=== PATIENT | male | born 1950 | race Caucasian/White ===

== ENCOUNTER 2020-05-31 18:11 | Emergency (ER) | payer MEDICARE, MEDICAID ==
[~2020-05-31] VITALS: Ht 187 cm; Wt 90.9 kg
[~2020-05-31 18:11] MED LIST: TRM50T PO
[2020-05-31] MEDS ORDERED: TETANUS,DIPTH,PERTUSS P/F (BOOSTRIX) 0.5 ML VIAL IM ONE (18:30)
[2020-05-31 18:33] LABS: BASOPHILS % (AUTO) 0 % (0-10); EOSINOPHILS # (AUTO) 0.2 10^3/uL (0.0-0.3); EOSINOPHILS % (AUTO) 2 % (0-10); HEMATOCRIT 43 % (40-54); HEMOGLOBIN 13.8 g/dL (13.3-17.7); LYMPHOCYTES # (AUTO) 1.5 10^3/uL (1.0-4.0); LYMPHOCYTES % (AUTO) 15 % (12-44); MEAN CORPUSCULAR HEMOGLOBIN 31 pg (25-34); MEAN CORPUSCULAR HGB CONC 32 g/dL (32-36); MEAN CORPUSCULAR VOLUME 95 fL (80-99); MEAN PLATELET VOLUME 10.4 fL (9.0-12.2); MONOCYTES # (AUTO) 0.7 10^3/uL (0.0-1.0); MONOCYTES % (AUTO) 7 % (0-12); NEUTROPHILS # (AUTO) 7.7 10^3/uL (1.8-7.8); NEUTROPHILS % (AUTO) 75 % (42-75); PLATELET COUNT 252 10^3/uL (130-400); WHITE BLOOD COUNT 10.3 10^3/uL (4.3-11.0)
[2020-05-31 18:37] LABS: ALBUMIN 3.8 GM/DL (3.2-4.5); CHLORIDE 101 MMOL/L (98-107); SODIUM 137 MMOL/L (135-145)
[2020-05-31 18:38] LABS: CALCIUM 8.5 MG/DL (8.5-10.1)
[2020-05-31 18:40] LABS: GLUCOSE 98 MG/DL (70-105); TOTAL PROTEIN 6.6 GM/DL (6.4-8.2)
[2020-05-31 18:41] LABS: BILIRUBIN,TOTAL 0.7 MG/DL (0.1-1.0); CARBON DIOXIDE 27 MMOL/L (21-32)
[2020-05-31 18:43] LABS: ALKALINE PHOSPHATASE 59 U/L (40-136); CREATININE SERUM 1.03 MG/DL (0.60-1.30); GFR ESTIMATED > 60
[2020-05-31 18:44] LABS: BUN/CREATININE RATIO 18
[2020-05-31 18:46] LABS: ALANINE AMINOTRANSFERASE 18 U/L (0-55); MAGNESIUM 2.3 MG/DL (1.6-2.4)
--- NOTE | 2020-05-31 18:56 | NUR ---
REPORT TO JEANIE
[2020-05-31 19:00] LABS: BILIRUBIN,URINE NEGATIVE (NEGATIVE); CLARITY,URINE CLEAR; COLOR,URINE YELLOW; GLUCOSE, URINE (UA) NEGATIVE (NEGATIVE); KETONES,URINE NEGATIVE (NEGATIVE); LEUKOCYTE ESTERASE ,URINE NEGATIVE (NEGATIVE); NITRITE,URINE NEGATIVE (NEGATIVE); PROTEIN,URINE NEGATIVE (NEGATIVE)
--- NOTE | 2020-05-31 19:13 | Diagnostic Imaging Report ---
EXAMINATION: CT head and CT cervical spine without contrast. TECHNIQUE: Multiple contiguous axial images were obtained through the brain and cervical spine without the use of intravenous contrast. Sagittal and coronal reformations through the cervical spine were then performed. All CT scans use one or more of the following dose optimizing techniques: automated exposure control, MA and/or KvP adjustment based on patient size and exam type or iterative reconstruction. HISTORY: Trauma. COMPARISON: None available. FINDINGS: CT head: Mild diffuse cerebral volume loss with proportional enlargement of the ventricles and sulci. Mild hypodensities throughout the supratentorial white matter of both cerebral hemispheres. No acute intracranial hemorrhage or abnormal extra-axial fluid collections are present. Calcification of the intracranial ICAs. No hyperdense vessel. The calvarium is intact. The mastoid air cells are clear. The visualized paranasal sinuses are clear. Surgical changes from bilateral cataract repair. CT cervical spine: Vertebral body height and alignment are preserved. Multilevel cervical spondylosis. No acute fracture, dislocation or destructive osseous process. Multilevel facet hypertrophy. No greater than mild central canal or neuroforaminal stenosis at any level. The paraspinous soft tissues are normal. The visualized thyroid gland is normal. The visualized lung apices are normal. IMPRESSION: 1. No acute intracranial abnormality. 2. Degenerative changes of the cervical spine without acute osseous abnormality. 3. Mild chronic senescent changes. Dictated by: Dictated on workstation # [id number]
[2020-05-31 19:18] LABS: AMPHETAMINE SCREEN, URINE NEGATIVE (NEGATIVE); BARBITURATE SCREEN URINE NEGATIVE (NEGATIVE); BENZODIAZEPINES SCREEN URINE NEGATIVE (NEGATIVE); CANNABINOID SCREEN, URINE NEGATIVE (NEGATIVE); COCAINE SCREEN URINE NEGATIVE (NEGATIVE); METHADONE STAT NEGATIVE (NEGATIVE); METHAMPHETAMINE SCREEN URINE S NEGATIVE (NEGATIVE); OPIATE SCREEN URINE NEGATIVE (NEGATIVE); OXYCODONE STAT NEGATIVE (NEGATIVE); PROPOXYPHENE STAT NEGATIVE (NEGATIVE); TRICYCLIC ANTIDEPRESSANTS SCRE NEGATIVE (NEGATIVE)
[2020-05-31 19:24] LABS: BACTERIA,URINE NEGATIVE /HPF
--- NOTE | 2020-05-31 19:24 | ED Fall/Injury ---
General Chief Complaint: Trauma-Non Activation Stated Complaint: FALL Nursing Triage Note: TO ED PER EMS. PATIENT REPORTS WAS BY [employer] [facility] WHEN LOST BALANCE AND FELL. GOT UP AND WALKED TO [facility] SOMEONE CALLED EMS BECAUSE THEY HE WAS DRUNK. HE REPORTS HE HAS NOT DRANK IN 20 PLUS YEARS. GOT OFF EMS COT AND WALKED TO BE WITHOUT PROBLEM NO C/O PAIN Source: patient, EMS Exam Limitations: no limitations History of Present Illness Date Seen by Provider: May 31, 2020 Time Seen by Provider: 18:12 Initial Comments This 70-year-old gentleman presents to the emergency room via EMS after suddenly developing disequilibrium and falling. He had been walking quite some distance prior to that without difficulty. He describes feeling lightheaded with some disequilibrium. He denied any chest pain or shortness of breath. Someone activated EMS because they thought he might be drunk. Patient denies drinking any alcohol. 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 He has no focal deficits on arrival. He is afebrile. He does not know of any Covid exposures. He did bump his head but he denies any injury. There is no pain or tenderness in the neck. Allergies and Home Medications Allergies Coded Allergies: NKANo Known Allergies (Unverified Allergy, Mild, 05/31/20) Home Medications Tramadol Hcl 50 Mg Tab, 50 MG PO Q6H PRN Prescribed by: MATY PENA on 05/30/09 1919 Patient Home Medication List Home Medication List Reviewed: Yes Review of Systems Review of Systems Constitutional: no symptoms reported Eyes: No Symptoms Reported Ears, Nose, Mouth, Throat: no symptoms reported Respiratory: no symptoms reported Cardiovascular: see HPI Gastrointestinal: no symptoms reported Genitourinary: no symptoms reported Musculoskeletal: no symptoms reported Skin: no symptoms reported Psychiatric/Neurological: See HPI Past Suzjziq-Sbiwyc-Szkoui Hx Past Med/Social Hx: Reviewed Nursing Past Med/Soc Hx Patient Social History Alcohol Use: Past History Recreational Drug Use: No Smoking Status: Former Smoker Recent Foreign Travel: No Contact w/Someone Who Travel: No Recent Infectious Disease Expo: No Past Medical History Surgeries: No Respiratory: No Cardiac: No Neurological: No Genitourinary: No Gastrointestinal: No Musculoskeletal: No Endocrine: No HEENT: No Cancer: No Psychosocial: No Physical Exam Vital Signs Vital Signs - First Documented 05/31/20 18:11 Temp 36.0 Pulse 81 Resp 18 B/P (MAP) 142/90 (107) Pulse Ox 97 O2 Delivery Room Air Capillary Refill : Less Than 3 Seconds Height, Weight, BMI Height: '" Weight: lbs. oz. 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, no motor/sensory deficits, alert, normal mood/affect, oriented x 3 Skin: normal color, warm/dry Mimi Coma Score Best Eye Response: (4) Open Spontaneously Best Verbal Response: (5) Oriented Best Motor Response: (6) Obeys Commands Melrude Total: 15 Progress/Results/Core Measures Results/Orders Lab Results Laboratory Tests Test 05/31/20 18:15 05/31/20 18:48 05/31/20 18:50 Range/Units White Blood Count 10.3 4.3-11.0 10^3/uL Red Blood Count 4.53 4.30-5.52 10^6/uL Hemoglobin 13.8 13.3-17.7 g/dL Hematocrit 43 40-54 % Mean Corpuscular Volume 95 80-99 fL Mean Corpuscular Hemoglobin 31 25-34 pg Mean Corpuscular Hemoglobin Concent 32 32-36 g/dL Red Cell Distribution Width 13.2 10.0-14.5 % Platelet Count 252 130-400 10^3/uL Mean Platelet Volume 10.4 9.0-12.2 fL Immature Granulocyte % (Auto) 0 % Neutrophils (%) (Auto) 75 42-75 % Lymphocytes (%) (Auto) 15 12-44 % Monocytes (%) (Auto) 7 0-12 % Eosinophils (%) (Auto) 2 0-10 % Basophils (%) (Auto) 0 0-10 % Neutrophils # (Auto) 7.7 1.8-7.8 10^3/uL Lymphocytes # (Auto) 1.5 1.0-4.0 10^3/uL Monocytes # (Auto) 0.7 0.0-1.0 10^3/uL Eosinophils # (Auto) 0.2 0.0-0.3 10^3/uL Basophils # (Auto) 0.0 0.0-0.1 10^3/uL Immature Granulocyte # (Auto) 0.0 0.0-0.1 10^3/uL Sodium Level 137 135-145 MMOL/L Potassium Level 4.0 3.6-5.0 MMOL/L Chloride Level 101 98-107 MMOL/L Carbon Dioxide Level 27 21-32 MMOL/L Anion Gap 9 5-14 MMOL/L Blood Urea Nitrogen 19 H 7-18 MG/DL Creatinine 1.03 0.60-1.30 MG/DL Estimat Glomerular Filtration Rate > 60 BUN/Creatinine Ratio 18 Glucose Level 98 70-105 MG/DL Calcium Level 8.5 8.5-10.1 MG/DL Corrected Calcium 8.7 8.5-10.1 MG/DL Magnesium Level 2.3 1.6-2.4 MG/DL Total Bilirubin 0.7 0.1-1.0 MG/DL Aspartate Amino Transf (AST/SGOT) 22 5-34 U/L Alanine Aminotransferase (ALT/SGPT) 18 0-55 U/L Alkaline Phosphatase 59 40-136 U/L Total Protein 6.6 6.4-8.2 GM/DL Albumin 3.8 3.2-4.5 GM/DL Serum Alcohol < 10 <10 MG/DL Urine Color YELLOW Urine Clarity CLEAR Urine pH 6.0 5-9 Urine Specific [place] 1.015 L 1.016-1.022 Urine Protein NEGATIVE NEGATIVE Urine Glucose (UA) NEGATIVE NEGATIVE Urine Ketones NEGATIVE NEGATIVE Urine Nitrite NEGATIVE NEGATIVE Urine Bilirubin NEGATIVE NEGATIVE Urine Urobilinogen 0.2 < = 1.0 MG/DL Urine Leukocyte Esterase NEGATIVE NEGATIVE Urine RBC (Auto) NEGATIVE NEGATIVE Urine RBC NONE /HPF Urine WBC NONE /HPF Urine Crystals NONE /LPF Urine Bacteria NEGATIVE /HPF Urine Casts NONE /LPF Urine Mucus NEGATIVE /LPF Urine Culture Indicated NO Urine Opiates Screen NEGATIVE NEGATIVE Urine Oxycodone Screen NEGATIVE NEGATIVE Urine Methadone Screen NEGATIVE NEGATIVE Urine Propoxyphene Screen NEGATIVE NEGATIVE Urine Barbiturates Screen NEGATIVE NEGATIVE Ur Tricyclic Antidepressants Screen NEGATIVE NEGATIVE Urine Phencyclidine Screen NEGATIVE NEGATIVE Urine Amphetamines Screen NEGATIVE NEGATIVE Urine Methamphetamines Screen NEGATIVE NEGATIVE Urine Benzodiazepines Screen NEGATIVE NEGATIVE Urine Cocaine Screen NEGATIVE NEGATIVE Urine Cannabinoids Screen NEGATIVE NEGATIVE Troponin I < 0.028 <0.028 NG/ML My Orders Orders - BORIS RAMOS MD Ct Head/Cervical Spine Wo (05/31/20 18:24) Alcohol (05/31/20 18:24) Cbc With Automated Diff (05/31/20 18:24) Comprehensive Metabolic Panel (05/31/20 18:24) Drug Screen Stat (Urine) (05/31/20 18:24) Ua Culture If Indicated (05/31/20 18:24) Ed Iv/Invasive Line Start (05/31/20 18:24) Magnesium (05/31/20 18:24) Dipht,Pertuss(Acell),Tet Adult (Boostrix (05/31/20 18:30) Orthostatic Vital Signs (Adult (05/31/20 19:25) Troponin I (05/31/20 19:28) Ekg Tracing (05/31/20 19:28) Monitor-Rhythm Ecg Trace Only (05/31/20 19:28) Ct Angio Head/Neck (05/31/20 20:05) Lactated Ringers (Lr 1000 Ml Iv Solution (05/31/20 20:05) Medications Given in ED Current Medications Medications Dose Ordered Sig/Chad Route Start Time Stop Time Status Last Admin Dose Admin Iohexol 100 ml ONCE ONCE IV 05/31/20 20:30 05/31/20 20:31 DC 05/31/20 20:29 75 ML Lactated Ringer's 1,000 ml @ 0 mls/hr Q0M ONCE IV 05/31/20 20:05 05/31/20 20:07 DC 05/31/20 20:33 1,000 MLS/HR Sodium Chloride 100 ml ONCE ONCE IV 05/31/20 20:30 05/31/20 20:31 DC 05/31/20 20:29 80 ML Vital Signs/I&O 05/31/20 05/31/20 05/31/20 18:11 19:46 22:29 Temp 36.0 Pulse 81 90 72 66 79 Resp 18 20 B/P (MAP) 142/90 (107) 143/86 (105) 147/86 146/93 (110) 133/87 (102) Pulse Ox 97 94 O2 Delivery Room Air Blood Pressure Mean: 107 Progress Progress Note : Progress Note Work-up was essentially unremarkable. CT angiogram of the head and neck was obtained to further evaluate cerebral and carotid perfusion. There were no areas of stenosis or large vessel occlusion. Orthostatic blood pressures were obtained and were as follows: Lying 143/86, heart rate 109, sitting 146/93, heart rate 115, standing 133/87, heart rate 101. Patient received a liter of IV fluid. He was asked to ambulate again after IV fluids. Ambulation was back to normal and he had no focal deficits. Patient was ultimately discharged home to outpatient follow-up. The cause of his this equilibrium is uncertain. Ultimate ly his symptoms resolved. Initial ECG Impression Date: May 31, 2020 Initial ECG Impression Time: 19:39 Initial ECG Rate: 76 Initial ECG Rhythm: Normal Sinus Comment Sinus rhythm with no ST elevation or depression. Significant artifact. Diagnostic Imaging Diagonstic Imaging: CT Plain Films/CT/US/NM/MRI: c-spine, head Comments CT head and C-spine viewed by me and report reviewed. See report below: NAME: BONY KWOK [facility] REC#: [id number] PT STATUS: REG ER : 1950 PHYSICIAN: BORIS RAMOS MD ADMIT DATE: 05/31/20/ER Signed Date of Exam:05/31/20 CT HEAD/CERVICAL SPINE WO EXAMINATION: CT head and CT cervical spine without contrast. TECHNIQUE: Multiple contiguous axial images were obtained through the brain and cervical spine without the use of intravenous contrast. Sagittal and coronal reformations through the cervical spine were then performed. All CT scans use one or more of the following dose optimizing techniques: automated exposure control, MA and/or KvP adjustment based on patient size and exam type or iterative reconstruction. HISTORY: Trauma. COMPARISON: None available. FINDINGS: CT head: Mild diffuse cerebral volume loss with proportional enlargement of the ventricles and sulci. Mild hypodensities throughout the supratentorial white matter of both cerebral hemispheres. No acute intracranial hemorrhage or abnormal extra-axial fluid collections are present. Calcification of the intracranial ICAs. No hyperdense vessel. The calvarium is intact. The mastoid air cells are clear. The visualized paranasal sinuses are clear. Surgical changes from bilateral cataract repair. CT cervical spine: Vertebral body height and alignment are preserved. Multilevel cervical spondylosis. No acute fracture, dislocation or destructive osseous process. Multilevel facet hypertrophy. No greater than mild central canal or neuroforaminal stenosis at any level. The paraspinous soft tissues are normal. The visualized thyroid gland is normal. The visualized lung apices are normal. IMPRESSION: 1. No acute intracranial abnormality. 2. Degenerative changes of the cervical spine without acute osseous abnormality. 3. Mild chronic senescent changes. Dictated by: Dictated on workstation # [id number] Dict: 05/31/201905 Trans: 05/31/201914 [facility] [id number] Interpreted by: JUANCARLOS MANN DO Electronically signed by: JUANCARLOS MANN DO 05/31/201914 Plain Films/CT/US/NM/MRI: other (CT angiogram head and neck viewed by me and report reviewed. See report below:) Comments NAME: BONY KWOK [facility] REC#: [id number] PT STATUS: REG ER : 1950 PHYSICIAN: BORIS RAMOS MD ADMIT DATE: 05/31/20/ER Signed Date of Exam:05/31/20 CT ANGIO HEAD/NECK EXAMINATION: CT angiography head and neck with and without contrast. TECHNIQUE: After intravenous administration of contrast, thin section axial CT angiography of the head and neck was performed. Source data was reformatted into 3D MIP projections. All CT scans use one or more of the following dose optimizing techniques: automated exposure control, MA and/or KvP adjustment based on patient size and exam type or iterative reconstruction. HISTORY: Lightheaded, Dizzy. COMPARISON: CT head 05/31/2020. . FINDINGS: CT head: Anterior circulation: The visualized portions of the internal carotid arteries are unremarkable without significant plaque or stenosis. The anterior and middle cerebral arteries show no stenosis or intraluminal filling defects. No anterior circulation aneurysms are present. Posterior circulation: The visualized distal vertebral arteries are patent to the vertebrobasilar junction. The basilar artery and both posterior cerebral arteries are widely patent without stenosis. No posterior circulation aneurysms are present. Mild diffuse cerebral volume loss with proportional enlargement of the ventricles and sulci. Mild hypodensities throughout the supratentorial white matter of both cerebral hemispheres. No acute intracranial hemorrhage or abnormal extra-axial fluid collections are present. No abnormal meningeal or parenchymal enhancement. The calvarium is intact. The mastoid air cells are clear. The visualized paranasal sinuses are clear. Surgical changes from bilateral cataract repair. CT neck: Arch: Conventional branching of the aortic arch. The visualized subclavian arteries are patent without stenosis. Right: The right common carotid, internal carotid, and external carotid arteries are widely patent without stenosis or dissection. No significant calcified plaque. The estimated internal carotid stenosis by NASCET criteria is 0%. The right vertebral artery is patent to the level of the vertebrobasilar junction. Left: The left common carotid, internal carotid, and external carotid arteries are widely patent without stenosis or dissection. No significant calcified plaque. The estimated internal carotid stenosis by NASCET criteria is 0%. The left vertebral artery is dominant and patent to the level of the vertebrobasilar junction. Other: The visualized thyroid gland is unremarkable. The cervical soft tissues are unremarkable. The visualized upper lungs and mediastinum are normal. Degenerative changes of the cervical spine. IMPRESSION: Normal vasculature in the head and neck without large vessel occlusion. Dictated by: Dictated on workstation # [id number] Dict: 05/31/202038 Trans: 05/31/202129 [facility] [id number] Interpreted by: JUANCARLOS MANN DO Electronically signed by: JUANCARLOS MANN DO 05/31/202129 Departure Impression Primary Impression: Disequilibrium Additional Impressions: Fall Qualified Codes: W19.XXXA - Unspecified fall, initial encounter Laceration of finger Qualified Codes: S61.213A - Laceration without foreign body of left middle finger without damage to nail, initial encounter Disposition: HOME, SELF-CARE Condition: Improved Departure-Patient Inst. Decision time for Depature: 22:04 Referrals: NO,LOCAL PHYSICIAN (PCP/Family) Primary Care Physician Patient Instructions: Laceration Repair With Glue (DC) Add. Discharge Instructions: Follow-up with your primary care provider soon as possible. Please call Tuesday for an appointment. Return to the emergency room if you have worsening symptoms or if disequilibrium returns. Eat a well-balanced diet and drink plenty of clear liquids to stay well- hydrated. Allow the glue on your finger to slough off naturally. New skin should heal underneath. All discharge instructions reviewed with patient and/or family. Voiced und erstanding. BORIS RAMOS MD May 31, 2020 19:24
[2020-05-31 19:46] VITALS: BP_SYST 133; BP_SYST 143; BP_SYST 146; BP_DIAS 86; BP_DIAS 87; BP_DIAS 93
[2020-05-31] MEDS ORDERED: LACTATED RINGERS 1,000 ML IV ONE (20:05)
[2020-05-31] MEDS ORDERED: NS 100 ML (IVPB) BAG IV ONE (20:30)
[2020-05-31] MEDS ORDERED: HOLD METFORMIN - RECEIVED CONTRAST 20 ML VIAL IV SCH (20:30)
[2020-05-31] MEDS ORDERED: IOHEXOL 350 MG/ML 100 ML (OMNIPAQUE 350) VIAL IV ONE (20:30)
--- NOTE | 2020-05-31 20:48 | Diagnostic Imaging Report ---
EXAMINATION: CT angiography head and neck with and without contrast. TECHNIQUE: After intravenous administration of contrast, thin section axial CT angiography of the head and neck was performed. Source data was reformatted into 3D MIP projections. All CT scans use one or more of the following dose optimizing techniques: automated exposure control, MA and/or KvP adjustment based on patient size and exam type or iterative reconstruction. HISTORY: Lightheaded, Dizzy. COMPARISON: CT head 05/31/2020. . FINDINGS: CT head: Anterior circulation: The visualized portions of the internal carotid arteries are unremarkable without significant plaque or stenosis. The anterior and middle cerebral arteries show no stenosis or intraluminal filling defects. No anterior circulation aneurysms are present. Posterior circulation: The visualized distal vertebral arteries are patent to the vertebrobasilar junction. The basilar artery and both posterior cerebral arteries are widely patent without stenosis. No posterior circulation aneurysms are present. Mild diffuse cerebral volume loss with proportional enlargement of the ventricles and sulci. Mild hypodensities throughout the supratentorial white matter of both cerebral hemispheres. No acute intracranial hemorrhage or abnormal extra-axial fluid collections are present. No abnormal meningeal or parenchymal enhancement. The calvarium is intact. The mastoid air cells are clear. The visualized paranasal sinuses are clear. Surgical changes from bilateral cataract repair. CT neck: Arch: Conventional branching of the aortic arch. The visualized subclavian arteries are patent without stenosis. Right: The right common carotid, internal carotid, and external carotid arteries are widely patent without stenosis or dissection. No significant calcified plaque. The estimated internal carotid stenosis by NASCET criteria is 0%. The right vertebral artery is patent to the level of the vertebrobasilar junction. Left: The left common carotid, internal carotid, and external carotid arteries are widely patent without stenosis or dissection. No significant calcified plaque. The estimated internal carotid stenosis by NASCET criteria is 0%. The left vertebral artery is dominant and patent to the level of the vertebrobasilar junction. Other: The visualized thyroid gland is unremarkable. The cervical soft tissues are unremarkable. The visualized upper lungs and mediastinum are normal. Degenerative changes of the cervical spine. IMPRESSION: Normal vasculature in the head and neck without large vessel occlusion. Dictated by: Dictated on workstation # [id number]
[2020-05-31 22:29] VITALS: BP 147/86
== END 2020-05-31 22:30 | disposition home or self-care (01) ==
LOC: EDUNIT# 18:11 → ER 18:12
DX: S61.219A Laceration without foreign body of unspecified finger without damage to nail, initial encounter (principal); E87.8 Other disorders of electrolyte and fluid balance, not elsewhere classified; R40.2410 Glasgow coma scale score 13-15, unspecified time; Z23 Encounter for immunization; Z87.891 Personal history of nicotine dependence; W19.XXXA Unspecified fall, initial encounter
CPT/HCPCS: 70450; 70496; 70498; 72125; 80053; 80306; 81000; 83735; 84484; 85025; 93005; 93041; 99284; G0480; 36415; 80320; 90715

== ENCOUNTER 2022-01-10 15:07 | Emergency (ER) | payer MEDICARE, MEDICAID ==
[~2022-01-10] VITALS: Ht 187.9 cm; Wt 99.8 kg
[2022-01-10 15:22] VITALS: BP 148/94
--- NOTE | 2022-01-10 15:46 | ED EENT ---
History of Present Illness General Chief Complaint: Ear Problems Stated Complaint: L EAR PAIN Nursing Triage Note: pt ambulatory to room. pt states he has had and ache below his left ear since this am that has come and gone throughout the day. pt denies any other problems or pain. Source: patient Exam Limitations: no limitations (HAILY KHAN) History of Present Illness Date Seen by Provider: Jan 10, 2022 Time Seen by Provider: 15:43 Initial Comments This is a 71-year-old male who presents to the emergency room for evaluation of left-sided neck pain. He states that he feels that he slept on his neck wrong last night and he has been having pain on and off throughout the day. He has never had anything like this before. It is worse with range of motion. He denies any blurry vision, loss of vision, numbness, tingling or headache. (HAILY KHAN) Allergies and Home Medications Allergies Coded Allergies: NKANo Known Allergies (Unverified Allergy, Mild, 05/31/20) Patient Home Medication List Home Medication List Reviewed: Yes (HAILY KHAN) Prednisone (Prednisone) 20 Mg Tab, 20 MG PO BID Prescribed by: Juliocesar Khan on 01/10/22 1547 Tramadol Hcl (Ultram) 50 Mg Tab, 50 MG PO Q6H PRN Prescribed by: MATY PENA on 05/30/09 2309 Review of Systems Review of Systems Constitutional: no symptoms reported Eyes: No Symptoms Reported Ears: No Symptoms Reported Nose: no symptoms reported Mouth: no symptoms reported Throat: no symptoms reported Respiratory: no symptoms reported Cardiovascular: no symptoms reported Gastrointestinal: no symptoms reported Musculoskeletal: neck pain Skin: no symptoms reported Neurological: No Symptoms Reported (HAILY KHAN) Past Hvzgerl-Tljspe-Hjbauc Hx Past Medical History Surgeries: No Respiratory: No Cardiac: No Neurological: No Genitourinary: No Gastrointestinal: No Musculoskeletal: No Endocrine: No HEENT: No Cancer: No Psychosocial: No (HAILY KHAN) Physical Exam Vital Signs Vital Signs - First Documented 01/10/22 15:22 Temp 35.9 Pulse 82 Resp 22 B/P (MAP) 148/94 (112) Pulse Ox 96 (BORIS RAMOS MD) Height, Weight, BMI Height: '" Weight: lbs. oz. kg; 28.00 BMI Method: General Appearance: WD/WN, no apparent distress Eyes: bilateral eye normal inspection, bilateral eye PERRL, bilateral eye EOMI Ears: bilateral ear auricle normal, bilateral ear canal normal, bilateral ear TM normal Neck: full range of motion, supple, tender lateral (Mild tenderness to the lateral neck musculature. 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 I explained to the patient that we would need to keep a close eye on this and that if he does not improve over the next 1 to 2 days of his symptoms worsen in any way he needs to return for further evaluation. At this time however, I do not feel that advanced imaging or labs are indicated. (HAILY KHAN) Impression Primary Impression: Neck muscle strain Disposition: 01 HOME, SELF-CARE Condition: Stable Departure-Patient Inst. Decision time for Depature: 15:47 (HAILY KHAN) Referrals: [facility] (PCP/Family) Primary Care Physician Patient Instructions: Neck Pain Scripts Prednisone (Prednisone) 20 Mg Tab 20 MG PO BID for 5 Days, #10 TAB Take 3 tabs(60mg)daily, decrease by 1/2 tab(10mg)daily. Prov: HAILY KHAN 01/10/22 ATTENDING PHYSICIAN NOTE: I was physically present as attending physician in the emergency department during the care of this patient, but I was not directly involved in the decision making or delivery of care for this patient. (BORIS RAMOS MD) HAILY KHAN Jan 10, 2022 15:46 BORIS RAMOS MD Jan 12, 2022 18:11
[2022-01-10] MEDS ORDERED: PRD20T PO (15:47)
== END 2022-01-10 16:05 | disposition home or self-care (01) ==
LOC: EDUNIT# 15:07 → ER 15:08
DX: S16.1XXA Strain of muscle, fascia and tendon at neck level, initial encounter (principal); X58.XXXA Exposure to other specified factors, initial encounter
CPT/HCPCS: 99282

== ENCOUNTER 2022-09-07 20:39 | Emergency (ER) | payer MEDICARE, MEDICAID ==
[~2022-09-07 20:39] MED LIST changes: +PRD20T PO
--- NOTE | 2022-09-07 21:38 | ED Upper Extremity ---
General Chief Complaint: Upper Extremity Stated Complaint: FALL Nursing Triage Note: PT AMB TO TRIAGE WITH C/O R MIDDLE FINGER INJURY AFTER FALLING THIS EVENING. PT STATES HE HAS BEEN LEANING TO THE LEFT WHEN HE WALKS BUT DOES NOT KNOW WHY OR WHEN THAT STARTED (WILMAN ROMAN) History of Present Illness Date Seen by Provider: Sep 07, 2022 Time Seen by Provider: 21:25 Initial Comments 72 year old male reports falling and injury to his right middle finger at the PIP joint. Small abrasion to volar surface of 3rd finger. Patient had last tetanus is vaccine in 2019. Onset: this afternoon Pain/Injury Location: right 3rd finger Method of Injury: fell (WILMAN ROMAN) Allergies and Home Medications Allergies Coded Allergies: NKANo Known Allergies (Unverified Allergy, Mild, 05/31/20) Patient Home Medication List Home Medication List Reviewed: Yes (WILMAN ROMAN) Prednisone (Prednisone) 20 Mg Tab, 20 MG PO BID Prescribed by: Juliocesar Licona on 01/10/22 1547 Tramadol Hcl (Ultram) 50 Mg Tab, 50 MG PO Q6H PRN Prescribed by: MATY PENA on 05/30/09 2309 Review of Systems Constitutional: no symptoms reported, see HPI Musculoskeletal: see HPI, joint pain (Right third finger, PIP) (WILMAN ROMAN) All Other Systems Reviewed Negative Unless Noted: Yes (WILMAN ROMAN) Past Doleulr-Qouyhw-Qniurj Hx Patient Social History Tobacco Use?: No Use of E-Cig and/or Vaping dev: No Substance use?: No Alcohol Use?: No Pt feels they are or have been: No (WILMAN ROMAN) Immunizations Up To Date First/Initial COVID19 Vaccinat: X1 (WILMAN ROMAN) Past Medical History Surgery/Hospitalization HX: DENIES Surgeries: No Respiratory: No Cardiac: No Neurological: No Genitourinary: No Gastrointestinal: No Musculoskeletal: No Endocrine: No HEENT: No Cancer: No Psychosocial: No (WILMAN ROMAN) Family Medical History Reviewed Nursing Family Hx (WILMAN ROMAN) Physical Exam Vital Signs Vital Signs - First Documented 09/07/22 09/07/22 21:12 23:16 Temp 36.6 Pulse 80 Resp 18 B/P (MAP) 158/89 (112) Pulse Ox 98 O2 Delivery Room Air (BRUEGGEMANN,BORIS T MD) Vital Signs Capillary Refill : (WILMAN ROMAN) Height, Weight, BMI Height: '" Weight: lbs. oz. kg; 28.00 BMI Method: General Appearance: WD/WN, no apparent distress Cardiovascular: normal peripheral pulses, regular rate, rhythm Respiratory: chest non-tender, lungs clear, normal breath sounds Hand: Right, bone tenderness, deformity (right hand 3rd finger PIP joint), limited ROM Neurologic/Psychiatric: no motor/sensory deficits, alert, normal mood/affect, oriented x 3 Skin: normal color, warm/dry (WILMAN ROMAN) Procedures/Interventions Splinting and Joint Reduction : Location: right 3rd finger, PIP Pre-Proc Neuro Vasc Exam: normal Post-Proc Neuro Vasc Exam: normal Progress 10 mL of 1% lidocaine used for digital block to the right third finger. Once satisfactory local anesthesia was obtained the IP joint was distracted and easily reduced. Patient tolerated procedure, well. Patient regained range of motion to his right third finger. Postreduction x-rays obtained, showing adequate alignment and no further d/l or fx. Padded aluminum splint applied to the right third finger Pre-Procedure NV Exam: Yes post joint reduction film: joint reduced (WILMAN ROMAN) Progress/Results/Core Measures Results/Orders Medications Given in ED Current Medications Medications Dose Ordered Sig/Chad Route Start Time Stop Time Status Last Admin Dose Admin Lidocaine HCl 10 ml ONCE ONCE INJ 09/07/22 22:30 09/07/22 22:31 DC 09/07/22 22:45 10 ML (BORIS RAMOS MD) Vital Signs/I&O 09/07/22 09/07/22 21:12 23:16 Temp 36.6 36.6 Pulse 80 68 Resp 18 16 B/P (MAP) 158/89 (112) 147/85 Pulse Ox 98 O2 Delivery Room Air (BORIS RAMOS MD) Blood Pressure Mean: 112 Departure Impression Primary Impression: Fall Qualified Codes: W19.XXXA - Unspecified fall, initial encounter Additional Impression: Dislocation of PIP joint of finger Qualified Codes: S63.289A - Dislocation of proximal interphalangeal joint of unspecified finger, initial encounter Disposition: 01 HOME, SELF-CARE Condition: Improved Departure-Patient Inst. Decision time for Depature: 22:30 (WILMAN ROMAN) Referrals: [facility] (PCP/Family) Primary Care Physician Patient Instructions: Common Finger Injuries (DC) Add. Discharge Instructions: Wear splint at all times for the next 2 weeks. Follow up with Primary Care or Orthopedics. Ice and elevate right 3rd finger. Alternate Tylenol 650 mg and ibuprofen 600 mg every 4 hours for pain. Return to the emergency department for new, urgent healthcare problems. All discharge instructions reviewed with patient and/or family. Voiced understanding. ATTENDING PHYSICIAN NOTE: I was physically present as attending physician in the emergency department during the care of this patient, but I was not directly involved in the decision making or delivery of care for this patient. (BORIS RAMOS MD) WILMAN ROMAN Sep 07, 2022 21:38 BORIS RAMOS MD Sep 08, 2022 00:27
--- NOTE | 2022-09-07 21:44 | Diagnostic Imaging Report ---
INDICATION: Pain FINDINGS: There is posterior dislocation of the proximal interphalangeal joint of the 3rd finger. No detectable fracture, however, post reduction radiographs recommended. There is arthritis greatest at the DIP. IMPRESSION: Posterior dislocation of the PIP of the 3rd finger without visible fracture. Dictated by: Dictated on workstation # [id number]
[2022-09-07] MEDS ORDERED: LIDOCAINE 1% INJ 10 ML VIAL INJ ONE (22:30)
[2022-09-07] MEDS ORDERED: IBUPROFEN 800 MG (MOTRIN) TAB PO STA (22:52)
[2022-09-07 23:16] VITALS: BP 147/85
--- NOTE | 2022-09-08 05:27 | Diagnostic Imaging Report ---
INDICATION: Follow-up status post reduction. COMPARISON: Earlier same day FINDINGS: 3 radiographic views of the right 3rd finger were obtained and show successful interval reduction of previously described dislocation of the proximal interphalangeal joint space. No associated acute osseous abnormality seen. Note is made of prominent soft tissue swelling. No unexpected radiopaque foreign bodies are identified. IMPRESSION: 1. Successful interval reduction of previously described dislocation of the 3rd proximal interphalangeal joint space. Dictated by: Dictated on workstation # [id number]
== END 2022-09-07 23:15 | disposition home or self-care (01) ==
LOC: EDUNIT# 20:39 → ER 20:40
DX: S63.282A Dislocation of proximal interphalangeal joint of right middle finger, initial encounter (principal); Z28.311 Partially vaccinated for COVID-19; W19.XXXA Unspecified fall, initial encounter
CPT/HCPCS: 26770; 64450; 73140

== ENCOUNTER 2023-03-21 21:42 | Emergency (ER) | payer MEDICARE, MEDICAID ==
[~2023-03-21] VITALS: Ht 177 cm; Wt 81.6 kg
--- NOTE | 2023-03-21 22:32 | ED Fall/Injury ---
General Chief Complaint: Trauma-Non Activation Stated Complaint: FALL Source: patient, RN/MD, EMS Exam Limitations: other (Very hard of hearing) (REYNALDO LARSEN) History of Present Illness Date Seen by Provider: Mar 21, 2023 Time Seen by Provider: 22:21 Initial Comments 73yo M with PMH of HTN and cataracts presents to the ED via EMS for fall that occurred just [employer]. History limited due to pt being extremely hard of hearing. Pt states that just [employer], he was walking on "asphalt or concrete" when he suddenly became dizzy and SOA, his vision went black and he fell backwards onto the pavement. Pt states that he struck his head but denies LOC. Pt states that he was not able to ambulate immediately after fall and was found by his son who then called EMS. In room, pt has a laceration to the posterior aspect of head. Pt c/o 4/10 pain around the area of the laceration, has no other complaints at this time. Per nurse, pt was c/o nausea when EMS arrived but was given zofran and currently denies any nausea. Pt states that he's never experienced anything like this before. Notes that he was recently diagnosed with hypoglycemia and has been eating pie for breakfast to "help with his sugar". Pt states that pie this morning around 9am was his only meal. Notes that he only had ~1-2 bottles of water today. Per nurse, pt has an apartment in [place] but walks or hitchhikes daily to [place]. Pt states that he was outside today "for a long time" and was sweating. Denies palpitations, CP, current SOA, diarrhea, urinary symptoms, blood in stool, hematuria, dysuria, fever, chills, nausea, cough, vomiting, and current anticoagulation use. Occurred: just prior to arrival Severity: mild Injuries/Pain Location: head Context: lightheaded (/dizziness) Loss of Consciousness: no loss of consciousness Associated Symptoms (Fall): Denies Symptoms (REYNALDO LARSEN) Allergies and Home Medications Allergies Coded Allergies: NKANo Known Allergies (Unverified Allergy, Mild, 05/31/20) Patient Home Medication List Home Medication List Reviewed: Yes (REYNALDO LARSEN) Home Medication List Reviewed: Yes (HINA LEVY MD) Prednisone (Prednisone) 20 Mg Tab, 20 MG PO BID Prescribed by: Juliocesar Licona on 01/10/22 1547 Tramadol Hcl (Ultram) 50 Mg Tab, 50 MG PO Q6H PRN Prescribed by: MATY PENA on 05/30/09 2309 Review of Systems Review of Systems Constitutional: No chills; dizziness (resolved); No fever Eyes: No Symptoms Reported Ears, Nose, Mouth, Throat: no symptoms reported Respiratory: No cough; short of breath (resolved) Gastrointestinal: no symptoms reported Genitourinary: no symptoms reported Musculoskeletal: no symptoms reported Skin: see HPI, other (laceration to posterior aspect of head) Psychiatric/Neurological: No Symptoms Reported (REYNALDO LARSEN) All Other Systems Reviewed Negative Unless Noted: Yes (REYNALDO LARSEN) Past Nlpyzww-Elwupu-Vzemet Hx Patient Social History Tobacco Use?: No Substance use?: No Alcohol Use?: No (REYNALDO LARSEN) Immunizations Up To Date First/Initial COVID19 Vaccinat: X1 (REYNALDO LARSEN) Past Medical History Surgery/Hospitalization HX: DENIES Surgeries: Yes (cataracts) Respiratory: No Cardiac: Yes Hypertension Neurological: No Genitourinary: No Gastrointestinal: No Musculoskeletal: No Endocrine: No HEENT: Yes Cataract Hearing Impairment: Hard of Hearing Cancer: No Psychosocial: No Integumentary: No (REYNALDO LARSEN) Family Medical History No Pertinent Family Hx (REYNALDO LARSEN) Physical Exam Vital Signs Vital Signs - First Documented 03/21/23 21:45 Temp 37.0 Pulse 74 Resp 20 B/P (MAP) 143/90 (107) (HINA LEVY MD) Vital Signs Capillary Refill : (REYNALDO LARSEN) Height, Weight, BMI Height: '" Weight: lbs. oz. kg; 28.00 BMI Method: General Appearance: WD/WN, no apparent distress, other (dirty) HEENT: PERRL/EOMI, other (unable to visualize TMs secondary to wax, no blood on inspection in canal) Neck: non-tender, full range of motion, supple Cardiovascular: regular rate, rhythm, no murmur Respiratory: chest non-tender, lungs clear, normal breath sounds, no respiratory distress, no accessory muscle use Gastrointestinal: normal bowel sounds, non tender, soft Back: normal inspection, no CVA tenderness, no vertebral tenderness Extremities: normal range of motion, non-tender, no pedal edema, no calf tenderness 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, no motor/sensory deficits, alert, normal mood/affect, oriented x 3 Skin: normal color, warm/dry, other (~2cm laceration to posterior aspect of head, no active bleeding noted, swelling and hematoma noted around wound) Lymphatic: no adenopathy (REYNALDO LARSEN) Skin: other (~4cm laceration to posterior aspect of head, no active bleeding noted, swelling and hematoma noted around wound; stellate laceration approx 4cm in total length) (HINA LEVY MD) Mimi Coma Score Best Eye Response: (4) Open Spontaneously Best Verbal Response: (5) Oriented Best Motor Response: (6) Obeys Commands (HINA LEVY MD) Procedures/Interventions Wound Location: Scalp Other Wound Location right post parietal Wound Length (cm): 4 Wound's Depth, Shape: superficial, irregular, stellate Wound Explored: clean Irrigated w/ Saline (ccs): 200 Anesthesia: 1% Lidocaine Volume Anesthetic (ccs): 4 Staple Repair: Stapler 35W Number of Sutures: 9 Layer Closure?: 1 Number Deep Layer Sutures: 0 Sterile Dressing Applied?: No (HINA LEVY MD) Progress/Results/Core Measures Results/Orders Lab Results Laboratory Tests Test 03/21/23 21:50 Range/Units White Blood Count 6.5 4.3-11.0 10^3/uL Red Blood Count 4.08 L 4.30-5.52 10^6/uL Hemoglobin 12.7 L 13.3-17.7 g/dL Hematocrit 39 L 40-54 % Mean Corpuscular Volume 95 80-99 fL Mean Corpuscular Hemoglobin 31 25-34 pg Mean Corpuscular Hemoglobin Concent 33 32-36 g/dL Red Cell Distribution Width 13.1 10.0-14.5 % Platelet Count 209 130-400 10^3/uL Mean Platelet Volume 11.3 9.0-12.2 fL Immature Granulocyte % (Auto) 1 % Neutrophils (%) (Auto) 60 42-75 % Lymphocytes (%) (Auto) 27 12-44 % Monocytes (%) (Auto) 8 0-12 % Eosinophils (%) (Auto) 4 0-10 % Basophils (%) (Auto) 1 0-10 % Neutrophils # (Auto) 3.9 1.8-7.8 10^3/uL Lymphocytes # (Auto) 1.7 1.0-4.0 10^3/uL Monocytes # (Auto) 0.6 0.0-1.0 10^3/uL Eosinophils # (Auto) 0.3 0.0-0.3 10^3/uL Basophils # (Auto) 0.0 0.0-0.1 10^3/uL Immature Granulocyte # (Auto) 0.0 0.0-0.1 10^3/uL Sodium Level 137 135-145 MMOL/L Potassium Level 3.5 L 3.6-5.0 MMOL/L Chloride Level 105 98-107 MMOL/L Carbon Dioxide Level 21 21-32 MMOL/L Anion Gap 11 5-14 MMOL/L Blood Urea Nitrogen 12 7-18 MG/DL Creatinine 0.96 0.60-1.30 MG/DL Estimat Glomerular Filtration Rate 83 BUN/Creatinine Ratio 13 Glucose Level 104 70-105 MG/DL Calcium Level 8.6 8.5-10.1 MG/DL Total Creatine Kinase 352 H 30-200 U/L Troponin I < 0.028 <0.028 NG/ML (HINA LEVY MD) My Orders Orders - HINA LEVY MD Ct Head/Cervical Spine Wo (03/21/23 22:54) Ed Iv/Invasive Line Start (03/21/23 22:54) Cbc With Automated Diff (03/21/23 22:54) Basic Metabolic Panel (03/21/23 22:54) Ekg Tracing (03/21/23 22:54) Creatine Kinase (03/21/23 22:54) Ns Iv 500 Ml (Ns Iv 500 Ml) (03/21/23 22:54) Lidocaine 1% Inj 10 Ml (Xylocaine 1% Inj (03/21/23 23:00) Troponin I Perfecto (03/21/23 23:56) Acetaminophen Tablet (Acetaminophen Ta (03/22/23 01:15) (HINA LEVY MD) Vital Signs/I&O 03/21/23 21:45 Temp 37.0 Pulse 74 Resp 20 B/P (MAP) 143/90 (107) (HINA LEVY MD) Progress Progress Note : Time: 01:01 Progress Note Patient seen and evaluated by me. I have reviewed the medical student's documentation and agree. Evaluation today includes physical exam, EKG, basic labs including CBC, basic metabolic panel, total CK, troponin, CT head and cer vical spine without contrast. Physical exam pertinent for well-developed well- nourished thin male in no acute distress with stable vital signs. Blood pressure is in the 130s to 150s systolic. He is alert, oriented. Notably hard of hearing. Pupils equal round and reactive to light. Extraocular muscles intact. No sharma sign or raccoon eyes. He has approximately 2 cm right po sterior parietal scalp laceration that has no active bleeding. Mildly tender to palpation. No significant midline cervical spine tenderness. No motor weakness to his extremities, no sensory loss. Heart is regular, lungs are clear, abdomen is benign. Differential diagnosis includes intracranial hemorrhage/subdural hematoma, scalp laceration, dehydration, vasovagal response, arrhythmia, heat related illness. Patient's labs independently reviewed and interpreted by me. His CBC is normal, hemoglobin and hematocrit 12.7 and 39 which is lower limits of normal. Normal white count normal platelets. Basic metabolic panel completely within normal limits. Total CK elevated at 352. Troponin is undetectable. His EKG shows normal sinus rhythm without ectopy or ST segment elevation or depression. Patient has been monitored throughout his stay in the emergency department with no deterioration in his condition, no arrhythmias noted on telemetry. His CAT scan of the head and cervical spine are without any abnormality as well. The patient has remained alert and oriented, no acute distress. He is treated with 500 cc of normal saline. He has provided some Tylenol for mild headache due to the head injury. Scalp laceration was addressed with 1% lidocaine approximately 2 and half cc, stapled with good wound closure and hemostasis. Patient is instructed to return to the emergency department for staple removal in 1 week. He strongly encouraged to follow-up with his primary care physician. Return precautions provided in both verbal and written format. Suspect that due to the patient's activity outside in the heat, walking with limited oral intake that this was more a response to becoming overheated and being dehydrated. No clinical or objective findings of concern for arrhythmia, [place], infection or resultant head bleed. (HINA LEVY MD) Initial ECG Impression Date: Mar 22, 2023 Initial ECG Impression Time: 23:29 Initial ECG Rate: 75 Initial ECG Rhythm: Normal Sinus Initial ECG Intervals: Normal Initial ECG Intervals CA 177 QRS 101 Qtc 427 Comment Q waves inferior leads; no ST elevation or depression; no ectopy; RBBB (?) (HINA LEVY MD) Diagnostic Imaging Diagonstic Imaging: CT Comments CT head/Cervical spine per radiologist ([facility]) : no acute intracranial abnor mality; no cervical spine fracture (HINA LEVY MD) Departure Impression Primary Impression: Near syncope Additional Impressions: Scalp laceration Qualified Codes: S01.01XA - Laceration without foreign body of scalp, initial encounter Concussion Qualified Codes: S06.0X0A - Concussion without loss of consciousness, initial encounter Disposition: HOME, SELF-CARE Condition: Stable Departure-Patient Inst. Decision time for Depature: 01:07 (HINA LEVY MD) Referrals: [facility] (PCP/Family) Primary Care Physician Patient Instructions: Laceration Repair With [facility], Syncope (Fainting) (DC) Add. Discharge Instructions: Make sure you are drinking plenty of water when you are out and about in the increased temperatures. You need to be having several small meals a day to keep your blood sugar consistent. You will need to follow-up with your primary care provider this week. The juan daniel in your scalp will need to be removed in 1 week. If you develop any severe headache, nausea vomiting or any other emergent, concerning symptoms, please return to the emergency room for reevaluation. You can take [id number] Tylenol 2 tablets every 6 hours as needed for headache. Verification and Attestation of Medical Student E/M Service A medical student performed and documented this service in my presence. I reviewed and verified all information documented by the medical student and made modifications to such information, when appropriate. I personally performed the physical exam and medical decision making. Hina Levy, Mar 22, 2023,01:09 (HINA LEVY MD) Copy Copies To 1: TERRA GARCIA TAYLOR Mar 21, 2023 22:32 HINA LEVY MD Mar 22, 2023 01:03
[2023-03-21] MEDS ORDERED: NS IV 500 ML 500 ML IV STA (22:54)
[2023-03-21] MEDS ORDERED: LIDOCAINE 1% INJ 10 ML VIAL INJ ONE (23:00)
[2023-03-21 23:06] LABS: BASOPHILS % (AUTO) 1 % (0-10); EOSINOPHILS # (AUTO) 0.3 10^3/uL (0.0-0.3); EOSINOPHILS % (AUTO) 4 % (0-10); HEMATOCRIT 39 % (40-54); HEMOGLOBIN 12.7 g/dL (13.3-17.7); LYMPHOCYTES # (AUTO) 1.7 10^3/uL (1.0-4.0); LYMPHOCYTES % (AUTO) 27 % (12-44); MEAN CORPUSCULAR HEMOGLOBIN 31 pg (25-34); MEAN CORPUSCULAR HGB CONC 33 g/dL (32-36); MEAN CORPUSCULAR VOLUME 95 fL (80-99); MEAN PLATELET VOLUME 11.3 fL (9.0-12.2); MONOCYTES # (AUTO) 0.6 10^3/uL (0.0-1.0); MONOCYTES % (AUTO) 8 % (0-12); NEUTROPHILS # (AUTO) 3.9 10^3/uL (1.8-7.8); NEUTROPHILS % (AUTO) 60 % (42-75); PLATELET COUNT 209 10^3/uL (130-400); POTASSIUM 3.5 MMOL/L (3.6-5.0); WHITE BLOOD COUNT 6.5 10^3/uL (4.3-11.0)
[2023-03-21 23:07] LABS: CALCIUM 8.6 MG/DL (8.5-10.1)
[2023-03-21 23:12] LABS: CREATININE SERUM 0.96 MG/DL (0.60-1.30)
[2023-03-22] MEDS ORDERED: ACETAMINOPHEN 325 MG TABLET PO ONE (01:15)
[2023-03-22 01:35] VITALS: BP 143/90
--- NOTE | 2023-03-22 06:54 | Diagnostic Imaging Report ---
EXAMINATION: CT head and CT cervical spine without contrast. TECHNIQUE: Multiple contiguous axial images were obtained through the brain and cervical spine without the use of intravenous contrast. Sagittal and coronal reformations through the cervical spine were then performed. All CT scans use one or more of the following dose optimizing techniques: automated exposure control, MA and/or KvP adjustment based on patient size and exam type or iterative reconstruction. HISTORY: Head and neck pain after injury COMPARISON: 05/31/2020 FINDINGS: HEAD: Mild diffuse cerebral volume loss with proportional enlargement of the ventricles and sulci. Mild hypodensities throughout the supratentorial white matter of both cerebral hemispheres. No acute intracranial hemorrhage or abnormal extra-axial fluid collections are present. Calcification of the intracranial ICAs. No hyperdense vessel. The calvarium is intact. The mastoid air cells are clear. The visualized paranasal sinuses are clear. The orbits are normal. There is a right posterior scalp laceration. C-SPINE: Vertebral body height and alignment are preserved. No acute fracture, dislocation, or destructive osseous process. Multilevel facet hypertrophy without perched facets. There is multilevel cervical spondylosis. The paraspinous soft tissues are normal. The visualized thyroid gland is normal. The visualized lung apices are normal. IMPRESSION: 1. No acute intracranial abnormality. Chronic microangiopathy and volume loss. 2. Degenerative changes of the cervical spine without acute osseous abnormality. 3. Agree with preliminary interpretation. Dictated by: Dictated on workstation # [id number]
== END 2023-03-22 01:40 | disposition home or self-care (01) ==
LOC: EDUNIT# 21:44 → ER 21:47
DX: S06.0X0A Concussion without loss of consciousness, initial encounter (principal); S01.01XA Laceration without foreign body of scalp, initial encounter; R55 Syncope and collapse; W18.30XA Fall on same level, unspecified, initial encounter; W22.09XA Striking against other stationary object, initial encounter; Y93.01 Activity, walking, marching and hiking
CPT/HCPCS: 36415; 70450; 72125; 80048; 82550; 84484; 85025; 93005

== ENCOUNTER 2023-04-18 14:47 | Emergency (ER) | payer MEDICARE, MEDICAID ==
[2023-04-18 15:30] VITALS: BP 138/73
== END 2023-04-18 15:30 | disposition home or self-care (01) ==
LOC: EDUNIT# 14:47 → ER 14:49
DX: Z48.02 Encounter for removal of sutures (principal)